=== PATIENT | female | born 1975 | race Two or more races ===

== ENCOUNTER 2017-03-26 11:20 | Emergency (ER) | payer OTHER ==
[~2017-03-26] VITALS: Ht 160 cm; Wt 89.8 kg
[2017-03-26] MEDS ORDERED: DEXAMETHASONE SOD PHOS 10 MG/1 ML VIAL INJ ONE (12:00)
[2017-03-26] MEDS ORDERED: HYDROCODONE/APAP 10MG-325MG TAB PO ONE (12:00)
[2017-03-26] MEDS ORDERED: CYCLOBENZAPRINE HCL 10 MG TAB PO ONE (12:00)
== END 2017-03-26 13:32 | disposition home or self-care (01) ==
LOC: ER 11:20
DX: M54.5 Low back pain (principal); S39.012A Strain of muscle, fascia and tendon of lower back, initial encounter
CPT/HCPCS: 99282; J1100